=== PATIENT | female | born 1970 ===

== ENCOUNTER 2018-04-05 09:09 | Outpatient (CLI) | payer OTHER ==
[~2018-04-05] VITALS: Ht 152.4 cm; Wt 73.9 kg
[~2018-04-05 09:09] MED LIST: LAMICTAL5 MG PO; LITHIUM CARBON150 MG PO; LUNESTA1 MG PO; SYNTHROID75 MCG PO
== END 2018-04-05 09:20 | disposition home or self-care (01) ==
LOC: OFIC 805 09:09
DX: H90.41 Sensorineural hearing loss, unilateral, right ear, with unrestricted hearing on the contralateral side (principal); R42 Dizziness and giddiness

== ENCOUNTER 2018-04-26 10:23 | Outpatient (CLI) | payer OTHER ==
[~2018-04-26] VITALS: Ht 152.4 cm; Wt 73.9 kg
== END 2018-04-26 10:40 | disposition home or self-care (01) ==
LOC: OFIC 805 10:23
DX: H90.41 Sensorineural hearing loss, unilateral, right ear, with unrestricted hearing on the contralateral side (principal); R42 Dizziness and giddiness

== ENCOUNTER 2018-06-07 10:18 | Outpatient (CLI) | payer OTHER ==
[~2018-06-07] VITALS: Ht 152.4 cm; Wt 73.9 kg
== END 2018-06-07 10:40 | disposition home or self-care (01) ==
LOC: OFIC 805 10:18
DX: H90.41 Sensorineural hearing loss, unilateral, right ear, with unrestricted hearing on the contralateral side (principal); R42 Dizziness and giddiness